=== PATIENT | female | born 1935 | race Asian ===

== ENCOUNTER → 2016-04-28 | Outpatient (CLI) | payer OTHER, BC | LOC: BHFA 13:15 | PROVIDERS: ATTEND Internal Medicine Cardiovascular Disease | DX: I50.9 Heart failure, unspecified (principal); R07.9 Chest pain, unspecified; I48.91 Unspecified atrial fibrillation | CPT/HCPCS: 78452; 93017; 93306; A9500; J2785 ==

== ENCOUNTER → 2016-06-28 | Outpatient (CLI) | payer OTHER, BC | LOC: FIMAGING 10:39 | DX: Z12.31 Encounter for screening mammogram for malignant neoplasm of breast (principal) | CPT/HCPCS: G0202 ==

== ENCOUNTER → 2016-08-16 | Outpatient (CLI) | payer OTHER, BC | LOC: BMCIMAGING 15:57 | PROVIDERS: ATTEND Internal Medicine | DX: R05 Cough (principal); R50.9 Fever, unspecified ==

== ENCOUNTER → 2016-09-09 | Outpatient (CLI) | payer OTHER, BC | LOC: BHFA 10:00 | PROVIDERS: ATTEND Internal Medicine Cardiovascular Disease | DX: I48.91 Unspecified atrial fibrillation (principal) ==

== ENCOUNTER 2016-10-31 07:25 | Day surgery (SDC) | payer OTHER, BC ==
[2016-10-31] MEDS ORDERED: DIAZEPAM 5 MG TAB PO ONE (07:27)
[2016-10-31] MEDS ORDERED: NS 1,000 ML IV ONE (07:27)
[2016-10-31] MEDS ORDERED: diphenhydrAMINE 25 MG CAP PO ONE ×2 (07:27→08:35)
[2016-10-31] MEDS ORDERED: FAMOTIDINE 20 MG TAB PO ONE (07:27)
--- NOTE | 2016-10-31 07:51 | CPEKG ---
Heart Rate: 79 RR Interval: 759 QRSD Interval: 88 QT Interval: 416 QTC Interval: 477 QRS [place]: 97 T Wave [place]: -17 EKG Severity - ABNORMAL ECG - EKG Impression: ATRIAL FIBRILLATION, V-RATE 58-95 EKG Impression: RIGHT AXIS DEVIATION EKG Impression: BORDERLINE T ABNORMALITIES, INFERIOR LEADS EKG Impression: ATRIAL FIBRILLATION IS NEW IN COMPARISON TO PRIOR ECG (2014) Electronically Signed By: Matt Adames 31-Oct-2016 17:16:57
[2016-10-31] MEDS ORDERED: ASPIRIN EC 325 MG TAB PO ONE ×2 (07:54→08:35)
[2016-10-31 08:05] LABS: % IMMATURE GRANULYOCYTES 0.2 % (0.0-1.1); ABSOLUTE IMMATURE GRANULOCYTES 0.01 10^3/uL (0.00-0.10); ADD DIFF? NO; ADD MORPH? NO; ADD SCAN? NO; ATYPICAL LYMPHOCYTE FLAG 10 (0-99); FRAGMENT RBC FLAG 20 (0-99); HEMATOCRIT 43.8 % (38.0-47.0); HEMOGLOBIN 13.9 g/dL (12.6-16.3); LEFT SHIFT FLG 0 (0-99); LIPEMIA HEMOLYSIS FLAG 80 (0-99); MEAN CELL HEMOGLOBIN CONCENTR. 31.7 g/dL (32.4-36.7); MEAN CELL VOLUME 78.8 fL (81.5-99.8); PLATELET CLUMPS FLAG 30 (0-99); PLATELET COUNT 52 10^3/uL (150-400); RED BLOOD CELL COUNT 5.56 10^6/uL (4.18-5.33); RED CELL DISTRIBUTION WIDTH 14.6 % (11.5-15.2)
[2016-10-31 08:15] LABS: INR 1.2 (0.83-1.16); PROTIME(PATIENT) 15.2 SEC (12.0-15.0)
[2016-10-31 08:20] LABS: ANION GAP 9 mEq/L (8-16); CALCIUM 8.9 mg/dL (8.5-10.4); CARBON DIOXIDE 25 mEq/l (22-31); CHLORIDE 110 mEq/L (97-110); CHOLESTEROL 105 mg/dL (140-220); CHOLESTEROL/HDL RATIO 3.28 RATIO (1.00-4.44); CREATININE 0.6 mg/dL (0.6-1.0); GLOMERULAR FILTRATION RATE > 60; GLUCOSE 100 mg/dL (70-100); HIGH DENSITY LIPOPROTEIN 32 mg/dL (40-85); LDL/HDL RATIO 1.75 RATIO (1.00-3.22); LOW DENSITY LIPOPROTEIN 56 mg/dL (80-100); NON-HIGH DENSITY LIPOPROTEIN 73 mg/dL (90-129); SODIUM 144 mEq/L (134-144); TRIGLYCERIDE 85 mg/dL (35-135); VERY LOW DENSITY LIPOPROTEINS 17 mg/dL (8-25)
[2016-10-31] MEDS ORDERED: FAMOTIDINE 20 MG TAB ONE (08:35)
[2016-10-31] MEDS ORDERED: DIAZEPAM 5 MG TAB ONE (08:35)
[2016-10-31] MEDS ORDERED: MIDAZOLAM 2 MG/2 ML VIAL ONE (09:18)
[2016-10-31] MEDS ORDERED: LIDOCAINE 1% 300 MG/30 ML SDV ONE (09:18)
[2016-10-31] MEDS ORDERED: VERAPAMIL 5 MG/2 ML VIAL ONE (09:18)
[2016-10-31] MEDS ORDERED: fentaNYL 100 MCG/2 ML INJ ONE (09:18)
[2016-10-31] MEDS ORDERED: HEPARIN 10,000 UNIT/10 ML MDV ONE (09:18)
[2016-10-31] MEDS ORDERED: IOPAMIDOL (ISOVUE-370) 150 ML BTL IV ONE (09:19)
[2016-10-31] MEDS ORDERED: hydrALAZINE 20 MG/ML VIAL ONE (10:57)
--- NOTE | 2016-10-31 10:57 | PDDXCAT ---
Diagnostic Cath Note - . 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 ) - Procedure Access: right groin Procedure: left heart catheterization, coronary angiography, left ventriculogram , right heart catheterization - Materials Left Heart Cath size: 5F Left Heart Cath materials: standard multipack (JL4, JR4, pigtail) Right Heart Cath size: 7F Right Heart Cath materials: PWP catheter - Findings-Left Heart Catheterization LM: Normal. LAD: Mid-LAD 40-50%; 60-70% in proximal to mid-portion of the most medial division of a trifurcated diagonal branch (approx. 2 mm in diameter). LCX: Minimal irregularities. RCA: Mild irregularities. EDP: 22 mmHg LVEF: 65% Wall motion: Normal. - Findings-Right Heart Catheterization RA: 20 mmHg RV: 68/18 mmHg PA: 70/36/50 mmHg O2 sat 65% PAOP: 20 mmHg AO: 128/80/90 mmHg O2 sat 94.1% Estimated blood loss: <50ml Closure method: manual pressure Assessment: 1) Normal LV systolic function. 2) Coronary artery disease as described above. 3) Moderatet to severe pulmonary hypertension. Plan: Continue medical management. Consider addition of a long acting nitrate. Has f /u appointment with EP service for atrial fib and early sick sinus syndrome. If patient were to receive a pacemaker, it could allow for up-titration of her beta jesusita. Patient Problems: Problems Problem Status Onset A-fib Acute CHF, acute Acute Chest pain Acute Chest pain of uncertain etiology Acute GI bleed Acute Hep C w/o coma, chronic Acute Herpes zoster infection Acute Hypokalemia Acute Statin not tolerated Acute
[2016-10-31] MEDS ORDERED: ACETAMINOPHEN 325 MG TAB PO ONE (13:45)
[2016-10-31 14:12] LABS: HEMOGLOBIN 13.1 g/dL (12.6-16.3)
== END 2016-10-31 16:00 | disposition home or self-care (01) ==
LOC: FCATH 07:25
PROVIDERS: ATTEND Internal Medicine Interventional Cardiology
PROC: B2111ZZ Fluoroscopy of Multiple Coronary Arteries using Low Osmolar Contrast (ICD-10-PCS; principal; 2016-10-31)
PROC: 4A023N8 Measurement of Cardiac Sampling and Pressure, Bilateral, Percutaneous Approach (ICD-10-PCS; principal; 2016-10-31)
PROC: B2151ZZ Fluoroscopy of Left Heart using Low Osmolar Contrast (ICD-10-PCS; principal; 2016-10-31)
DX: I50.32 Chronic diastolic (congestive) heart failure (principal); R07.9 Chest pain, unspecified; R06.02 Shortness of breath; R94.39 Abnormal result of other cardiovascular function study; I48.91 Unspecified atrial fibrillation; I27.2 Other secondary pulmonary hypertension; I25.10 Atherosclerotic heart disease of native coronary artery without angina pectoris; I11.0 Hypertensive heart disease with heart failure; D69.6 Thrombocytopenia, unspecified; B19.20 Unspecified viral hepatitis C without hepatic coma; Z79.01 Long term (current) use of anticoagulants
CPT/HCPCS: J0360; J1644; J2250; J3010; Q9967

== ENCOUNTER 2016-11-19 10:14 | Observation (INO) | payer OTHER, BC ==
--- NOTE | 2016-11-19 10:34 | CPEKG ---
Heart Rate: 116 RR Interval: 517 QRSD Interval: 84 QT Interval: 336 QTC Interval: 467 QRS [place]: 97 T Wave [place]: -25 EKG Severity - ABNORMAL ECG - EKG Impression: ATRIAL FIBRILLATION, V-RATE 92-140 EKG Impression: RIGHT AXIS DEVIATION Electronically Signed By: Winston Maza 19-Nov-2016 13:23:08
--- NOTE | 2016-11-19 10:47 | EDPHY ---
H & P Stated Complaint: +SOB since yesterday Time Seen by Provider: 11/19/16 10:27 HPI/ROS: CHIEF COMPLAINT: Cough and dyspnea HISTORY OF PRESENT ILLNESS: The patient presents to the ED with acute cough and dyspnea which began yesterday. The patient reports her symptoms were worse last night when lying flat. The patient has a history of chronic atrial fibrillation. She is on Xarelto and Toprol for this condition. The patient is currently being evaluated for possible ablation. She recently underwent a cardiac angiogram. The patient denies any fever. She does report a dry nonproductive cough. She denies increasing lower extremity edema today but did have increasing edema earlier in the week. The patient currently takes 60 mg of Lasix each morning. She did take this medication earlier today. The patient was seen at urgent care referred to the emergency department for possible CHF. The patient denies any complaints of pleuritic chest pain. She denies abdominal pain, vomiting or diarrhea. She denies any recent medication changes. She has been compliant with her regular medications. REVIEW OF SYSTEMS: A comprehensive 10 point review of systems is otherwise negative aside from elements mentioned in the history of present illness. Source: Patient Exam Limitations: No limitations - Personal History Current Tetanus/Diphtheria Vaccine: Yes Current Tetanus Diphtheria and Acellular Pertussis (TDAP): Yes Tetanus Vaccine Date: 2010 - Medical/Surgical History Hx Asthma: No Hx Chronic Respiratory Disease: No Hx Diabetes: No Hx Cardiac Disease: Yes Hx Renal Disease: No Hx Cirrhosis: No Hx Alcoholism: No Hx HIV/AIDS: No Hx Splenectomy or Spleen Trauma: No Other PMH: HTN, Hypothyroidism, Bradycardic - pacemaker suggested, Hep.C, hemorrhoids, Afib (cardioversion), right hip replacement, CHF - Social History Smoking Status: Never smoked - Physical Exam Exam: General Appearance: Elderly female, no acute distress Eyes: Pupils equal and round no pallor or injection ENT, Mouth: Mucous membranes moist Respiratory: Fine rales and expiratory wheezing noted Cardiovascular: Tachycardic, irregular consistent with atrial fibrillation Gastrointestinal: Abdomen is soft and nontender, no masses, bowel sounds normal Neurological: A&O, normal motor function, normal sensory exam, normal cranial nerves Skin: Warm and dry, no rashes Musculoskeletal: Neck is supple nontender Extremities: symmetrical, full range of motion, 1+ bilateral edema Constitutional: Initial Vital Signs Temperature (C) 36.9 C 11/19/16 10:21 Heart Rate 114 H 11/19/16 10:21 Respiratory Rate 20 11/19/16 10:21 Blood Pressure 147/97 H 11/19/16 10:21 O2 Sat (%) 91 L 11/19/16 10:21 O2 Delivery Mode Room Air O2 (L/minute) 3 Allergies/Adverse Reactions: Sulfa (Sulfonamide Antibiotics) Allergy (Verified 10/22/15 11:08) Unknown Home Medications: Medication Instructions Recorded Ascorbic Acid [Vitamin C 500 mg 500 mg PO DAILY 01/28/15 (*)] Cholecalciferol Vit D3 [Vitamin D3 2,000 units PO DAILY 01/28/15 (*)] Cyanocobalamin [Vitamin B12 (*)] 1,000 mcg PO DAILY 01/28/15 Herbals/Supplements -Info Only 1 ea PO DAILY 01/28/15 [place]-3 Fatty Acids [Fish Oil 1000 1,000 mg PO BID 01/28/15 mg (*)] Calcium Carb W/Vit D [Calcium Carb 500 mg PO DAILY 10/02/15 W/Vit D 500/200 (*)] Glucosamine/Chondroitin 1 each PO DAILY 10/02/15 [Glucosamine/Chondroitin (*)] Multivitamins [Multivitamin (*)] 1 each PO DAILY 10/02/15 Rivaroxaban [Xarelto] 20 mg PO DAILY@18 10/02/15 Vitamin B Complex [B Complex] 1 each PO DAILY 10/02/15 Furosemide [Lasix 20 MG (*)] 60 mg PO DAILY 10/31/16 Levothyroxine [Synthroid 75 mcg 75 mcg PO DAILY06 10/31/16 (*)] Potassium Cl [Klor-Con 20 meq (*)] 20 meq PO BID 10/31/16 Toprol Xl 25 mg (*) 37.5 mg PO DAILY 10/31/16 Medical Decision Making - Diagnostics EKG Interpretation: EKG: Complete interpretation has been separately recorded in the [facility] archive. Summary impression: Atrial fibrillation with ventricular rate of 116 , nonspecific ST T wave changes are noted Imaging Results: Imaging Impressions Chest X-Ray 11/19/16 10:34 Impression: Mild central bronchitis, otherwise negative chest.. ED Course/Re-evaluation: The patient presents to the ED with a 1 day history of dyspnea and cough. The patient is noted to be in chronic atrial fibrillation. She has relative rate control in the emergency department. The patient's chest x-ray demonstrates changes consistent with bronchitis and no significant fluid overload. The patient's proBNP level is 500. The patient was bronchospastic. She received a DuoNeb and albuterol nebulizer. The patient was placed on a pvc monitor. The patient's protime was therapeutic. The patient had serial examinations in the ED by myself. She continues to have hypoxemia, tachycardia from her atrial fibrillation and mild tachypnea. Given her age and comorbidities I do feel she should be admitted to the hospital for symptomatic management of her bronchitis. Consultation is made with the hospitalist service. She will be admitted by Dr. Argentina Rider at 2:15 p.m. The patient had multiple examinations by myself in the emergency department. Differential Diagnosis: Differential diagnosis considered includes congestive heart failure, pneumonia, bronchitis, arrhythmia - Data Points Laboratory Results: Laboratory Results 11/19/16 10:52 11/19/16 10:52 11/19/16 11/19/16 11/19/16 10:52 10:52 10:52 WBC 9.19 10^3/uL 10^3/uL (3.80-9.50) RBC 5.57 10^6/uL H 10^6/uL (4.18-5.33) Hgb 13.9 g/dL g/dL (12.6-16.3) Hct 43.5 % % (38.0-47.0) MCV 78.1 fL L fL (81.5-99.8) MCH 25.0 pg L pg (27.9-34.1) MCHC 32.0 g/dL L g/dL (32.4-36.7) RDW 14.2 % % (11.5-15.2) Plt Count 81 10^3/uL L 10^3/uL (150-400) MPV TNP Neut % (Auto) 81.4 % H % (39.3-74.2) Lymph % (Auto) 11.1 % L % (15.0-45.0) [place] % (Auto) 6.4 % % (4.5-13.0) Eos % (Auto) 0.1 % L % (0.6-7.6) Baso % (Auto) 0.3 % % (0.3-1.7) Nucleat RBC Rel Count 0.0 % % (0.0-0.2) Absolute Neuts (auto) 7.48 10^3/uL H 10^3/uL (1.70-6.50) Absolute Lymphs (auto) 1.02 10^3/uL 10^3/uL (1.00-3.00) Absolute Monos (auto) 0.59 10^3/uL 10^3/uL (0.30-0.80) Absolute Eos (auto) 0.01 10^3/uL L 10^3/uL (0.03-0.40) Absolute Basos (auto) 0.03 10^3/uL 10^3/uL (0.02-0.10) Absolute Nucleated RBC 0.00 10^3/uL 10^3/uL (0-0.01) Immature Gran % 0.7 % % (0.0-1.1) Immature Gran # 0.06 10^3/uL 10^3/uL (0.00-0.10) PT 23.6 SEC H SEC (12.0-15.0) INR 2.09 H (0.83-1.16) Sodium 139 mEq/L mEq/L (134-144) Potassium 3.7 mEq/L mEq/L (3.5-5.2) Chloride 103 mEq/L mEq/L (97-110) Carbon Dioxide 24 mEq/l mEq/l (22-31) Anion Gap 12 mEq/L mEq/L (8-16) BUN 16 mg/dL mg/dL (7-23) Creatinine 0.5 mg/dL L mg/dL (0.6-1.0) Estimated GFR > 60 Glucose 136 mg/dL H mg/dL (70-100) Calcium 9.1 mg/dL mg/dL (8.5-10.4) Troponin I < 0.012 ng/mL ng/mL (0.000-0.034) NT-Pro-B Natriuret Pep 514 pg/mL H pg/mL (0-450) Medications Given: Discontinued Medications Albuterol (Proventil Neb) 3 ml IH EDNOW ONE Stop: 11/19/16 11:30 Last Admin: 11/19/16 11:33 Dose: 3 ml Albuterol/Ipratropium (Duoneb) 3 ml IH EDNOW ONE Stop: 11/19/16 11:35 Last Admin: 11/19/16 12:29 Dose: 3 ml Departure - Departure Disposition: [facility] Inpatient Acute Clinical Impression: Acute bronchitis, A-fib Condition: Fair Referrals: Ayla Milian MD [Primary Care Provider] - As per Instructions
[2016-11-19] MEDS ORDERED: ALBUTEROL 3 ML DEYVIAL ONE (11:03)
[2016-11-19 11:09] LABS: % IMMATURE GRANULYOCYTES 0.7 % (0.0-1.1); ABSOLUTE IMMATURE GRANULOCYTES 0.06 10^3/uL (0.00-0.10); ADD DIFF? NO; ADD MORPH? NO; ADD SCAN? NO; ATYPICAL LYMPHOCYTE FLAG 0 (0-99); FRAGMENT RBC FLAG 20 (0-99); HEMATOCRIT 43.5 % (38.0-47.0); HEMOGLOBIN 13.9 g/dL (12.6-16.3); LEFT SHIFT FLG 20 (0-99); LIPEMIA HEMOLYSIS FLAG 80 (0-99); MEAN CELL VOLUME 78.1 fL (81.5-99.8); PLATELET CLUMPS FLAG 10 (0-99); PLATELET COUNT 81 10^3/uL (150-400); RED BLOOD CELL COUNT 5.57 10^6/uL (4.18-5.33); RED CELL DISTRIBUTION WIDTH 14.2 % (11.5-15.2)
[2016-11-19 11:18] LABS: ANION GAP 12 mEq/L (8-16); CALCIUM 9.1 mg/dL (8.5-10.4); CARBON DIOXIDE 24 mEq/l (22-31); CHLORIDE 103 mEq/L (97-110); CREATININE 0.5 mg/dL (0.6-1.0); GLOMERULAR FILTRATION RATE > 60; GLUCOSE 136 mg/dL (70-100); POTASSIUM 3.7 mEq/L (3.5-5.2); SODIUM 139 mEq/L (134-144)
[2016-11-19 11:28] LABS: INR 2.09 (0.83-1.16); PROTIME(PATIENT) 23.6 SEC (12.0-15.0)
[2016-11-19] MEDS ORDERED: ALBUTEROL 3 ML DEYVIAL IH ONE (11:29)
[2016-11-19 11:30] LABS: TROPONIN I < 0.012 ng/mL (0.000-0.034)
[2016-11-19] MEDS ORDERED: IPRATROPIUM/ALBUTEROL 3 ML DEYVIAL IH ONE (11:34)
[2016-11-19] MEDS ORDERED: ONDANSETRON DISINTEGRATING 4 MG TAB PO PRN (15:37)
[2016-11-19] MEDS ORDERED: ONDANSETRON 4 MG/2 ML VIAL IVP PRN (15:37)
[2016-11-19] MEDS ORDERED: ALBUTEROL 3 ML DEYVIAL IH PRN (15:37)
[2016-11-19] MEDS ORDERED: ACETAMINOPHEN 325 MG TAB PO PRN (15:37)
[2016-11-19] MEDS ORDERED: guaiFENesin/CODEINE PHOS 10 ML UDCUP PO PRN (15:45)
[2016-11-19 16:34] LABS: % SATURATION 35 % (20-55); TOTAL IRON BINDING CAPACITY 347 ug/dL (260-490)
[2016-11-19] MEDS: predniSONE 20 MG TAB PO SCH (17:12)
[2016-11-19] MEDS: BENZONATATE 100 MG CAP PO PRN (17:13)
[2016-11-19] MEDS ORDERED: RIVAROXABAN 20 MG TAB PO SCH (18:00)
[2016-11-19] MEDS: IPRATROPIUM/ALBUTEROL 3 ML DEYVIAL IH SCH ×2 (18:08→22:05)
--- NOTE | 2016-11-19 18:58 | GHP ---
[f rep st] HISTORY AND PHYSICAL DATE OF ADMISSION: 11/19/2016 CHIEF COMPLAINT: Cough. HISTORY OF PRESENT ILLNESS: This is a 81-year-old female, who presents with 2 days of nonproductive cough. She does have some shortness of breath. She admits to wheezing. She had chills initially and other upper respiratory tract infection symptoms. She denies orthopnea or edema. No palpitatio ns. She does have a history of atrial fibrillation. REVIEW OF SYSTEMS: A 10-point review of systems was obtained, and other than state was negative. PAST MEDICAL HISTORY: 1. Atrial fibrillation, being considered for ablation. 2. Nonobstructive coronary artery disease found on recent angiogram. 3. Chronic thrombocytopenia. 4. Hepatitis C. 5. Hypertension. SOCIAL HISTORY: No smoking or alcohol. . FAMILY HISTORY: Mother at age 52 of unknown causes. PHYSICAL EXAM: VITAL SIGNS: Afebrile, blood pressure is 133/60, heart rate 106, oxygen saturation 98% on 2 L. GENERAL: The patient is well developed, in no apparent distress. HEENT: Nonicteric s clerae. Extraocular movements intact. Moist mucous membranes. NECK: Supple. No thyromegaly. YULISSA NGS: Good effort. Some slight coarse expiratory wheezes, but fairly clear, but she also just recen tly got a nebulizer treatment. CARDIOVASCULAR: Irregularly irregular. No murmurs, rubs, or gallop s. ABDOMEN: Positive bowel sounds. Soft, nontender, nondistended. No hepatosplenomegaly. EXTREM ITIES: No clubbing, cyanosis, or edema. SKIN: Without rash, dry, intact. NEURO: Alert and orien nik x3. Moving all 4 extremities equally. PSYCH: Normal affect. LABS: White count 9, hemoglobin 13, platelets are 81, which is in line with previous. Chemistry is essentially normal. BNP is 500. Chest x-ray, personally reviewed and interpreted, showed no pneumonia. EKG, personally reviewed and interpreted, showed atrial fibrillation. ASSESSMENT: This is a 81-year-old female presenting with acute bronchitis and reactive airways. PLAN: 1. Acute bronchitis. I think this is viral. Per ER report, she had a significant amount of wheezi ng. This is better with nebulizer treatment. I am going to start other prednisone and continue neb ulizers. We will hold off on any antibiotics. 2. Atrial fibrillation. Rate is a little bit on the high side. I will continue the Toprol and her anticoagulation. We will give a little bit of fluid and follow. 3. History of hepatitis C. 4. Chronic thrombocytopenia. 5. Leukocytosis. We will check iron studies. /[id number]/MODL
[2016-11-19] MEDS: NS 1,000 ML IV SCH (19:00)
[2016-11-19] MEDS: POTASSIUM CL 20 MEQ TAB PO SCH (21:11)
[2016-11-20] MEDS: NS 1,000 ML IV SCH (05:04)
[2016-11-20] MEDS ORDERED: LEVOTHYROXINE 75 MCG TAB PO SCH (06:00)
[2016-11-20] MEDS: IPRATROPIUM/ALBUTEROL 3 ML DEYVIAL IH SCH ×2 (06:30→12:01)
[2016-11-20] MEDS: BENZONATATE 100 MG CAP PO PRN (07:36)
[2016-11-20] MEDS: METOPROLOL SUCCINATE XR 25 MG TAB PO SCH ×2 (07:36→10:19)
[2016-11-20] MEDS: POTASSIUM CL 20 MEQ TAB PO SCH (07:36)
[2016-11-20] MEDS: predniSONE 20 MG TAB PO SCH (07:37)
--- NOTE | 2016-11-20 08:35 | HOSPPROG ---
Hospitalist Progress Note Assessment/Plan: Patient is a 81-year-old female who presented to the emergency room with 2 days of shortness of breath and nonproductive cough. Today is my 1st encounter with the patient. Chart reviewed. * acute bronchitis This is likely viral and better with nebulizer treatment Started on prednisone with improvement *dizziness evaluate how she does w PT * Atrial fibrillation OAC and beta jesusita * history of hepatitis C *Plan: dc if feeling well. Subjective: Heidi says she is feeling much better but is a bit dizzy this morning. Objective: Vital Signs Temp Pulse Resp BP Pulse Ox 36.5 C 92 16 104/77 90 L 11/20/16 07:20 11/20/16 07:20 11/20/16 07:20 11/20/16 07:20 11/20/16 07:20 11/19/16 11/20/16 11/21/16 05:59 05:59 05:59 Intake Total 0 Balance 0 PT 23.6 SEC (12.0-15.0) H 11/19/16 10:52 INR 2.09 (0.83-1.16) H 11/19/16 10:52 - Physical Exam Constitutional: no apparent distress, appears nourished, not in pain Eyes: PERRL Ears, Nose, Mouth, Throat: hearing normal Cardiovascular: irregularly irregular, No tachycardia Respiratory: no respiratory distress Gastrointestinal: soft, non-tender abdomen Skin: warm Neurologic: AAOx3 Psychiatric: interacting appropriately ICD10 Worksheet Patient Problems: Problems Problem Status Onset A-fib Acute Acute bronchitis Acute CHF, acute Acute Chest pain Acute Chest pain of uncertain etiology Acute GI bleed Acute Hep C w/o coma, chronic Acute Herpes zoster infection Acute Hypokalemia Acute Statin not tolerated Acute
[2016-11-20] MEDS ORDERED: FUROSEMIDE 20 MG TAB PO SCH (09:00)
[2016-11-20] MEDS ORDERED: METOPROLOL TARTRATE 25 MG TAB PO ONE (09:06)
[2016-11-20 11:39] VITALS: BP 126/83; TEMP 97.6
[2016-11-20 12:13] VITALS: PULSE 94; RESP 15; O2SAT 93
--- NOTE | 2016-11-20 12:30 | GDS ---
[f rep st] DISCHARGE SUMMARY DISCHARGE DIAGNOSES: 1. Bronchitis, likely viral. 2. Dizziness. 3. Atrial fibrillation. 4. History of hepatitis C. Briefly, the patient is a 81-year-old female, who presented to the ER with 2 days of shortness of br eath and nonproductive cough. Today, she is feeling markedly better after getting prednisone and ne bulizer treatments. She will be discharged home, and follow up with her primary care provider. HOSPITAL COURSE: 1. Acute bronchitis, this is likely viral. She is markedly improved. Lung sounds are clear. 2. Dizziness. Did well with walking and physical therapy. 3. Atrial fibrillation on oral anticoagulation. Rate controlled on a beta jesusita. 4. History of hepatitis C. Further follow up with her PCP. CONDITION ON DISCHARGE: Stable. Blood pressure is 126/83, heart rate is 85, respiratory rate is 18 , O2 sats on room air are 95%, temperature is 36.4 Celsius. MEDICATIONS AT DISCHARGE: Please see the EMR. DISCHARGE INSTRUCTIONS: 1. Take the prednisone as instructed. 2. Follow up with her primary care provider if she develops any fever, chills, chest pain, or short ness of breath, or to return to the ER. /[id number]/MODL
--- NOTE | 2016-11-20 14:43 | ASDISCHSUM ---
Discharge Information Plan Status:Home with No Needs Medically Cleared to Leave: Discharge Date:11/20/2016 01:16 PM CM D/C Disposition:Home, Routine, Self-Care ADT D/C Disposition:Home, Routine, Self-Care Projected Discharge Date:11/20/2016 01:16 PM Transportation at D/C:Family Discharge Delay Reason: Follow-Up Date:11/20/2016 01:16 PM Discharge Slot: Final Diagnosis: Placement Information Patient Contact Information Contact Name:GALE ABDI Relationship: Address:[address] [place] [address] City:[place] Alternate Phone: [facility]/Zip Code:[place] [address] Email: Financial Information Financial Class:[facility] Primary Plan Desc:MEDICARE INPATIENT Primary Plan Number:[id number] Secondary Plan Desc:[employer] Secondary Plan Number:[id number] Assessment Information Intervention Information
== END 2016-11-20 13:16 | disposition home or self-care (01) ==
LOC: INTOOBSV 14:02 → F3E 15:14
PROVIDERS: ADMIT Internal Medicine; ATTEND Student in an Organized Health Care Education/Training Program
DX: J20.9 Acute bronchitis, unspecified (principal); R42 Dizziness and giddiness; I48.2 Chronic atrial fibrillation; I50.9 Heart failure, unspecified; R00.1 Bradycardia, unspecified; D69.6 Thrombocytopenia, unspecified; I25.10 Atherosclerotic heart disease of native coronary artery without angina pectoris; I11.0 Hypertensive heart disease with heart failure; B19.20 Unspecified viral hepatitis C without hepatic coma; E03.9 Hypothyroidism, unspecified; Z79.01 Long term (current) use of anticoagulants; Z96.641 Presence of right artificial hip joint; Z88.2 Allergy status to sulfonamides
CPT/HCPCS: 71020; 93005; 97161; 97166; G0378; G8978; G8979; G8980; G8987; G8988

== ENCOUNTER → 2016-12-01 | Outpatient (CLI) | payer OTHER, BC | LOC: FIMAGING 09:45 | PROVIDERS: ATTEND Internal Medicine | DX: J42 Unspecified chronic bronchitis (principal); I51.7 Cardiomegaly ==

== ENCOUNTER → 2017-05-09 | Outpatient (CLI) | payer OTHER, BC ==
[~2017-05-09] MED LIST: IOPAMIDOL (ISOVUE 370) 100 ML BTL IV ONE
== END ==
LOC: FIMAGING 15:35
PROVIDERS: ATTEND Internal Medicine Critical Care Medicine
DX: R91.1 Solitary pulmonary nodule (principal); I77.819 Aortic ectasia, unspecified site; G47.33 Obstructive sleep apnea (adult) (pediatric)
CPT/HCPCS: 71275; Q9967

== ENCOUNTER → 2017-07-20 | Outpatient (CLI) | payer OTHER, BC | LOC: FIMAGING 07:51 | PROVIDERS: ATTEND Internal Medicine | DX: Z12.31 Encounter for screening mammogram for malignant neoplasm of breast (principal) ==

== ENCOUNTER → 2017-09-21 | Outpatient (CLI) | payer OTHER, BC | DX: I50.33 Acute on chronic diastolic (congestive) heart failure (principal); I48.91 Unspecified atrial fibrillation; R53.83 Other fatigue; R06.02 Shortness of breath ==

== ENCOUNTER → 2017-10-13 | Outpatient (CLI) | payer OTHER, BC | LOC: BHFA 14:00 | PROVIDERS: ATTEND Internal Medicine Cardiovascular Disease | DX: I50.9 Heart failure, unspecified (principal) ==

== ENCOUNTER → 2018-03-27 | Outpatient (CLI) | payer OTHER, BC | LOC: BHFA 10:45 | PROVIDERS: ATTEND Nurse Practitioner Adult Health | DX: I50.33 Acute on chronic diastolic (congestive) heart failure (principal); I48.91 Unspecified atrial fibrillation; R07.9 Chest pain, unspecified; R06.02 Shortness of breath; R42 Dizziness and giddiness ==

== ENCOUNTER → 2018-04-05 | Outpatient (CLI) | payer OTHER, BC | LOC: BHFA 08:30 | PROVIDERS: ATTEND Internal Medicine Cardiovascular Disease | DX: R07.9 Chest pain, unspecified (principal); I48.91 Unspecified atrial fibrillation; R06.02 Shortness of breath | CPT/HCPCS: 78452; 93017; A9500; J2785 ==

== ENCOUNTER → 2018-06-21 | Outpatient (CLI) | payer OTHER, BC | LOC: FIMAGING 09:13 | PROVIDERS: ATTEND Internal Medicine | DX: R93.2 Abnormal findings on diagnostic imaging of liver and biliary tract (principal); N28.89 Other specified disorders of kidney and ureter ==

== ENCOUNTER → 2018-07-17 | Outpatient (CLI) | payer OTHER, BC ==
[~2018-07-17] MED LIST changes: -IOPAMIDOL (ISOVUE 370) 100 ML BTL IV ONE; +IOPAMIDOL (ISOVUE-300) 100 ML BTL ONE
== END ==
LOC: FIMAGING 09:06
PROVIDERS: ATTEND Internal Medicine
DX: Q63.8 Other specified congenital malformations of kidney (principal); I25.10 Atherosclerotic heart disease of native coronary artery without angina pectoris; I85.00 Esophageal varices without bleeding
CPT/HCPCS: 74178; Q9967

== ENCOUNTER → 2018-07-23 | Outpatient (CLI) | payer OTHER, BC | LOC: FIMAGING 11:39 | PROVIDERS: ATTEND Internal Medicine | DX: Z12.31 Encounter for screening mammogram for malignant neoplasm of breast (principal) ==